=== PATIENT | male | born 1950 | race Two or more races ===

== ENCOUNTER → 2016-12-28 | Outpatient (REF) | payer MEDICARE, BC, OTHER ==
[2016-12-28 18:43] LABS: CALCIUM OXALATE CRYSTALS SMALL
== END ==
LOC: M LAB REF 17:16
PROVIDERS: ATTEND Nurse Practitioner Family
DX: R31.9 Hematuria, unspecified (principal)
CPT/HCPCS: 81001; 87086; 88108; G0463

== ENCOUNTER → 2017-03-25 | Outpatient (CLI) | payer MEDICARE, BC, OTHER ==
[2017-03-25 16:25] LABS: CREATININE FOR GFR 1.3 MG/DL (0.70-1.30); GLOMERULAR FILTRATION RATE 58.6 (>49); POTASSIUM SERUM 4.9 MEQ/L (3.5-5.1)
== END ==
LOC: M SMT 11:56
PROVIDERS: ATTEND Nurse Practitioner Women's Health
DX: R31.0 Gross hematuria (principal)
CPT/HCPCS: 36415; 80048; 81001; 87086; 88108; G0463

== ENCOUNTER → 2017-03-25 | Outpatient (REF) | payer MEDICARE, BC, OTHER ==
[2017-03-25 14:11] LABS: YEAST LIKE CELL URINE AUTO SMALL
== END ==
LOC: M SMT 13:26
PROVIDERS: ATTEND Nurse Practitioner Women's Health
DX: R31.0 Gross hematuria (principal)

== ENCOUNTER → 2017-04-02 | Outpatient (CLI) | payer MEDICARE, BC, OTHER ==
[~2017-04-02] MED LIST: ISOVUE-370 76% 100ML VIAL (Q9967) As Ordered ONE
--- NOTE | 2017-04-02 10:54 | REP ---
CT urogram: CT abdomen and pelvis without and with IV contrast: History: Gross hematuria. No comparison abdomen CT. CT contrast dose: 100 mL of intravenous Isovue 370. CT findings: Preliminary digital insulation engineman radiograph shows moderate colonic stool. There is thoracolumbar scoliosis. The lung bases are clear. There is a 6 mm hypervascular area in the right lobe of the liver on early phase imaging consistent with a small hemangioma. There is a tiny sub-centimeter cyst in the right lobe 5 mm in size. The liver and spleen are otherwise normal in size homogeneous in texture. The gallbladder is unremarkable. No pancreatic abnormality is appreciated. There is no evidence of intrarenal calculus. The kidneys enhance symmetrically are morphologically intact post contrast. No filling defect is seen in the renal collecting system or pelvis on delayed images. The urinary bladder is intact. Prostate is mildly enlarged and elevates the bladder base. Seminal vesicles are unremarkable. Normal caliber aorta is seen. No retroperitoneal mass or adenopathy is seen. Small and large intestinal bowel loops are unremarkable. There is moderate stool in the colon. No abdominal wall defect is seen. Bone window settings demonstrate some degenerative spondylosis changes in the lumbar spine along with the curvature. There is a hemangioma on the right side of the L2 vertebral body. Impression: Mildly enlarged prostate. Otherwise negative urinary tract CT study. Small hemangioma of the right lobe of the liver. Scoliosis and degenerative changes in the lumbar spine. Moderate colonic stool. Signed by Arron Miranda MD 04/02/2017 11:50 A
== END ==
LOC: M RAD 08:14
PROVIDERS: ATTEND Nurse Practitioner Women's Health
DX: R31.0 Gross hematuria (principal); N40.0 Benign prostatic hyperplasia without lower urinary tract symptoms; D18.03 Hemangioma of intra-abdominal structures; M51.36 Other intervertebral disc degeneration, lumbar region; M41.9 Scoliosis, unspecified
CPT/HCPCS: 74178; Q9967

== ENCOUNTER → 2017-05-12 | Outpatient (REF) | payer MEDICARE, BC, OTHER | LOC: M LAB REF 12:46 | PROVIDERS: ATTEND Physician Assistant | DX: R10.32 Left lower quadrant pain (principal) ==

== ENCOUNTER → 2017-05-12 | Outpatient (CLI) | payer MEDICARE, BC, OTHER ==
--- NOTE | 2017-05-12 10:46 | REP ---
KUB ABDOMEN AND PELVIS: Two KUB films of abdomen and pelvis are performed. There is a large amount of fecal material in the right colon and transverse colon. A small amount of scattered air is seen in the distal colon. No dilated small bowel loops are seen. There are small phleboliths in the inferior pelvis. There are degenerative changes of the spine with curvature toward the right. IMPRESSION: Large amount of fecal material on the right and transverse colon. No small bowel dilatation. Signed by Peter Vasquez MD 05/12/2017 02:45 P
[2017-05-12 13:11] LABS: ALBUMIN/GLOBULIN RATIO 1.29 (1.00-1.93); BILIRUBIN,TOTAL 0.6 MG/DL (0.2-1.0); CALCIUM LEVEL 9.6 MG/DL (8.8-10.2); CREATININE FOR GFR 1.73 MG/DL (0.70-1.30); GLOMERULAR FILTRATION RATE 42.2 (>49); POTASSIUM SERUM 4.4 MEQ/L (3.5-5.1); TOTAL PROTEIN 7.1 GM/DL (6.4-8.2)
[2017-05-12 13:16] LABS: BASO % 0.2 % (0.0-1.0); EOS % 0.1 % (0.0-3.0); IMMATURE GRANULOCYTE % 0.3 % (0-0); LYMPH # 0.5 10^3/uL (1.5-4.5); LYMPH % 5.7 % (24.0-44.0); MEAN CORPUSCULAR HEMOGLOBIN 28.5 pg (27.0-33.0); MEAN CORPUSCULAR VOLUME 86.5 fl (80.0-96.0); MONO # 0.3 10^3/uL (0.0-0.8); MONO % 3.5 % (0.0-5.0); NEUTROPHILS # 8.6 10^3/uL (1.8-7.7); NEUTROPHILS % 90.2 % (36.0-66.0); PLATELET COUNT, AUTOMATED 221 10^3/uL (150-450); RED CELL DISTRIBUTION WIDTH 13.6 % (11.5-14.5); WHITE BLOOD COUNT 9.6 10^3/uL (4.0-10.0)
[2017-05-12 13:22] LABS: ADD MANUAL DIFFER NO; DIFF SLIDE NUMBER 159
== END ==
LOC: M WUC 09:39
PROVIDERS: ATTEND Physician Assistant
DX: R73.9 Hyperglycemia, unspecified (principal); R10.32 Left lower quadrant pain

== ENCOUNTER → 2021-01-24 | Outpatient (CLI) | payer MEDICARE, BC, OTHER ==
[2021-01-24 16:58] LABS: CREATININE FOR GFR 1.17 MG/DL (0.70-1.30); GLOMERULAR FILTRATION RATE > 60.0 (>42)
== END ==
LOC: M WUC 13:59
PROVIDERS: ATTEND Pain Medicine Interventional Pain Medicine
DX: M96.1 Postlaminectomy syndrome, not elsewhere classified (principal)

== ENCOUNTER → 2021-02-14 | Outpatient (CLI) | payer MEDICARE, BC, OTHER ==
[~2021-02-14] MED LIST changes: -ISOVUE-370 76% 100ML VIAL (Q9967) As Ordered ONE; +PROHANCE 279.3MG/ML 15ML VIAL As Ordered ONE; +PROHANCE 279.3MG/ML 5ML VIAL As Ordered ONE
== END ==
LOC: M RAD 09:48
PROVIDERS: ATTEND Pain Medicine Interventional Pain Medicine
DX: M50.221 Other cervical disc displacement at C4-C5 level (principal); M50.222 Other cervical disc displacement at C5-C6 level; M50.223 Other cervical disc displacement at C6-C7 level; M48.02 Spinal stenosis, cervical region; M47.812 Spondylosis without myelopathy or radiculopathy, cervical region; M96.1 Postlaminectomy syndrome, not elsewhere classified
CPT/HCPCS: 72156; A9576

== ENCOUNTER → 2021-03-14 | Outpatient (CLI) | payer MEDICARE, BC, OTHER | LOC: M SLEEP 20:00 | PROVIDERS: ATTEND Nurse Practitioner Family | DX: G47.33 Obstructive sleep apnea (adult) (pediatric) (principal); R06.83 Snoring ==

== ENCOUNTER → 2021-05-07 | Outpatient (CLI) | payer MEDICARE, BC, OTHER ==
--- NOTE | 2021-05-08 14:26 | SLEEPCENT ---
DATE: 05/07/2021 ORDERED BY: Wendy Castellano Nocturnal polysomnography was performed for the titration of pressure therapy in this patient with obstructive sleep apnea syndrome, apnea-hypopnea index 22.9. For testing, a ResMed Quattro full-face mask of large size was used. There was 4 cm of water pressure applied to the circuit, and the lights were extinguished. There was 9 hours and 3 minutes of data reviewed. There was 223 minutes of sleep identified. Sleep latency was normal at 34 minutes. REM sleep was delayed at 385 minutes. Sleep architecture showed poor progression with periods of wake. One REM cycle was seen late in the study. Overall sleep efficiency was only 51.7%. The electrocardiogram showed a sinus rhythm with an average heart rate of 68 beats per minute. EEG showed normal waveforms for wake and sleep. Respiratory events were best palliated with CPAP at a pressure of +8. This was found late in the study. Remaining measures of sleep physiology were normal. IMPRESSION: Obstructive sleep apnea syndrome (G47.33). RECOMMENDATION: Nightly use of pressure therapy at 8 cm of water appears to be sufficient to overcome obstructive respiratory events. As the patient had difficulty entering sleep in the lab setting, close clinical followup is recommended.
== END ==
LOC: M SLEEP 20:00
PROVIDERS: ATTEND Nurse Practitioner Family
DX: G47.33 Obstructive sleep apnea (adult) (pediatric) (principal)

== ENCOUNTER → 2022-12-23 | Outpatient (CLI) | payer MEDICARE, BC, OTHER | LOC: M PLAIMG 09:29 | PROVIDERS: ATTEND Nurse Practitioner Family | DX: G47.33 Obstructive sleep apnea (adult) (pediatric) (principal) ==

== ENCOUNTER 2023-03-11 07:25 | Day surgery (SDC) | payer MEDICARE, BC, OTHER ==
[~2023-03-11] VITALS: Ht 175.3 cm; Wt 84.6 kg
[~2023-03-11 07:25] MED LIST changes: +ATOR1TAB21 PO; +ECOT81TA5 PO; +LEVOTAB10 PO; +NS 1,000 ML IV ONE; -PROHANCE 279.3MG/ML 15ML VIAL As Ordered ONE; -PROHANCE 279.3MG/ML 5ML VIAL As Ordered ONE
[2023-03-11] MEDS ORDERED: propofoL 200 MG/20 ML VIAL As Ordered ONE ×2 (08:55→09:18)
[2023-03-11] MEDS ORDERED: LIDOCAINE 2% 100MG/5ML SDV (FOR ANES.) As Ordered ONE (08:55)
[2023-03-11 09:13] VITALS: TEMP 96.9
[2023-03-11 09:30] VITALS: BP 131/85; O2SAT 99
== END 2023-03-11 09:35 | disposition home or self-care (01) ==
LOC: M OPP 07:25
PROVIDERS: ATTEND Surgery
DX: Z12.11 Encounter for screening for malignant neoplasm of colon (principal); K63.5 Polyp of colon; K64.8 Other hemorrhoids; Z87.891 Personal history of nicotine dependence; Z79.02 Long term (current) use of antithrombotics/antiplatelets; Z79.82 Long term (current) use of aspirin; Z79.891 Long term (current) use of opiate analgesic; Z79.899 Other long term (current) drug therapy